=== PATIENT | female | born 1980 | race Caucasian/White ===

== ENCOUNTER 2020-01-07 16:31 | Emergency (ER) | payer OTHER ==
[~2020-01-07] VITALS: Ht 157.5 cm; Wt 89.8 kg
[2020-01-07] MEDS ORDERED: WELLBUTRIN SR150 MG PO (16:48)
[2020-01-07] MEDS ORDERED: LEXAPRO 10 MG T10 M2 PO (16:49)
[2020-01-07] MEDS ORDERED: ADDERALL 10 MG10 MG PO (16:49)
[2020-01-07] MEDS ORDERED: XANAX 0.5 MG0.5 M1 PO (16:50)
[2020-01-07 17:28] LABS: ABSOLUTE NEUTROPHILS 4.4 thou/uL (1.4-8.2); BASOPHILS 0.8 % (0.0-2.0); EOSINOPHILS 0.8 % (0.0-3.0); HEMATOCRIT 42.4 % (37.0-47.0); HEMOGLOBIN 14.5 gm/dL (12.0-15.0); MCH 31.8 pg (26.0-34.0); MCHC 34.3 g/dL (28.0-37.0); MCV 92.7 fL (80.0-100.0); MONOCYTES 7.2 % (1.0-8.0); PLATELET COUNT 308 thou/uL (150-400); POLYS 54.2 % (36.0-66.0); RBC 4.57 mil/uL (4.20-5.00); RDW 12.1 % (10.5-14.5); WBC 8.1 thou/uL (4.0-11.0)
[2020-01-07 17:38] LABS: ANION GAP 8 mmol/L (7-16); BUN 17 mg/dL (7-18); CALCIUM 8.9 mg/dL (8.5-10.1); CHLORIDE 99 mmol/L (98-107); CO2 28 mmol/L (21-32); CREATININE 0.8 mg/dL (0.6-1.0); GLUCOSE 90 mg/dL (74-106); POTASSIUM 3.5 mmol/L (3.5-5.1); SODIUM 135 mmol/L (136-145)
[2020-01-07 17:44] LABS: ALBUMIN 3.9 g/dL (3.4-5.0); LIPASE 84 U/L (73-393); SGOT 36 U/L (15-37); SGPT 62 U/L (30-65); TOTAL BILIRUBIN 0.6 mg/dL (<0.1-1.0); TOTAL PROTEIN 7.8 g/dL (6.4-8.2)
[2020-01-07 17:48] LABS: DIRECT BILIRUBIN < 0.1 mg/dL (<0.1-0.2)
[2020-01-07] MEDS ORDERED: SENNA-DOCUSATE1 EAC1 PO (20:03)
[2020-01-07] MEDS ORDERED: PERCOCET 5-3251 EACH PO (20:03)
[2020-01-07] MEDS ORDERED: ZOFRAN ODT4 MG PO (20:03)
[2020-01-07] MEDS ORDERED: CARAFATE 1 GM TA1 G1 PO (20:03)
[2020-01-07] MEDS ORDERED: PROTONIX40 MG PO (20:03)
[2020-01-07 20:18] VITALS: BP 140/74
== END 2020-01-07 20:36 | disposition home or self-care (01) ==
LOC: ER 16:31
PROVIDERS: Emergency Medicine
DX: K27.9 Peptic ulcer, site unspecified, unspecified as acute or chronic, without hemorrhage or perforation (principal); F17.210 Nicotine dependence, cigarettes, uncomplicated; Z90.49 Acquired absence of other specified parts of digestive tract; Z90.710 Acquired absence of both cervix and uterus; Z90.89 Acquired absence of other organs; Z79.899 Other long term (current) drug therapy; Z88.8 Allergy status to other drugs, medicaments and biological substances